=== PATIENT | female | born 1965 | race Caucasian/White ===

== ENCOUNTER 2019-04-08 19:03 | Emergency (ER) | payer SELFPAY ==
[~2019-04-08] VITALS: Ht 160 cm; Wt 81.2 kg
[2019-04-08 19:28] VITALS: BP 157/80
--- NOTE | 2019-04-08 19:37 | NUR ---
PT AMBULATED TO LOBBY TO A/W BED. VSS
--- NOTE | 2019-04-08 20:01 | NUR ---
PT TAKEN TO BED 12
--- NOTE | 2019-04-08 20:40 | NUR ---
53 Y/O FEMALE C/O NECK PAIN X 2 DAYS. RATES PAIN 7/10 AND DESCRIBES IT ACHING. LUMP LOCATED ON LEFT SIDE/POSTERIOR HEAD, TENDERNESS TO TOUCH. VSS. DENIES ANY N,V,BLURRY VISON. STEADY GAIT. A & O X4. NO DISTRESS NOTED. TOOK AN ALEEVE 5-6HRS AGO. NKA. PMH: DM,HTN, HYPOTHYROID
[2019-04-08 21:43] VITALS: BP 157/80
--- NOTE | 2019-04-08 21:43 | NUR ---
Patient discharged with v/s stable. Written and verbal after care instructions given and explained. Patient alert, oriented and verbalized understanding of instructions. Ambulatory with steady gait. All questions addressed prior to discharge. ID band removed. Patient advised to follow up with PMD. Rx of MOTRIN AND FLONASE NASAL SPRAY given. Patient educated on indication of medication including possible reaction and side effects. Opportunity to ask questions provided and answered.
== END 2019-04-08 21:43 | disposition home or self-care (01) ==
LOC: MED 19:03
DX: J06.9 Acute upper respiratory infection, unspecified (principal); M54.2 Cervicalgia; R59.1 Generalized enlarged lymph nodes; E11.9 Type 2 diabetes mellitus without complications; I10 Essential (primary) hypertension; E07.9 Disorder of thyroid, unspecified; Z90.49 Acquired absence of other specified parts of digestive tract
CPT/HCPCS: 99283